=== PATIENT | female | born 1975 | race Caucasian/White ===

== ENCOUNTER → 2018-04-19 | Outpatient (REF) | payer OTHER ==
[2018-04-21 15:28] LABS: HPV HYBRID CAPTURE II Negative (Negative)
== END ==
LOC: M SFHCWAGY 14:19
DX: Z12.4 Encounter for screening for malignant neoplasm of cervix (principal)

== ENCOUNTER → 2018-05-01 | Outpatient (CLI) | payer OTHER | LOC: M WHC 08:56 | DX: N85.4 Malposition of uterus (principal); D25.0 Submucous leiomyoma of uterus; N92.6 Irregular menstruation, unspecified | CPT/HCPCS: 76830 ==